=== PATIENT | male | born 1990 | race African-American/Black ===

== ENCOUNTER 2021-09-07 11:19 | Emergency (ER) | payer SELFPAY ==
[~2021-09-07] VITALS: Ht 177.8 cm; Wt 63.5 kg
[2021-09-07 11:19] VITALS: BP 136/76
--- NOTE | 2021-09-07 11:19 | NUR ---
BIB SELF FOR MED REFILL. DILANTIN 300 MG 3X A DAY
[2021-09-07] MEDS ORDERED: PHEN100C4 PO ×2 (11:37→12:00)
--- NOTE | 2021-09-07 12:03 | NUR ---
Patient discharged to home in stable condition. Written and verbal after care instructions given. Patient verbalizes understanding of instruction.
== END 2021-09-07 12:04 | disposition home or self-care (01) ==
LOC: ER 11:23
DX: G40.909 Epilepsy, unspecified, not intractable, without status epilepticus (principal); Z76.0 Encounter for issue of repeat prescription